=== PATIENT | male | born 1970 | race Caucasian/White ===

== ENCOUNTER 2017-06-17 14:31 | Emergency (ER) | payer SELFPAY ==
[2017-06-17 14:36] VITALS: BP 145/82; PULSE 84; RESP 20; TEMP 97.5; O2SAT 100
--- NOTE | 2017-06-17 14:55 | C.PDOC ---
History Of Present Illness Patient presents to ED for B/P check. Patient reports episode of palpitations today. (-) CP, (-) Sob Time Seen by Provider: 06/17/17 14:43 Chief Complaint (Nursing): Palpitations History Per: Patient Onset/Duration Of Symptoms: Hrs (1) Current Symptoms Are (Timing): Gone Severity: None Recent travel outside of the [place]: No Additional History Per: Patient Past Medical History Reviewed: Historical Data, Nursing Documentation, Vital Signs Vital Signs: Last Vital Signs Temp 97.5 F L 06/17/17 14:35 Pulse 84 06/17/17 14:35 Resp 20 06/17/17 14:35 BP 145/82 06/17/17 14:35 Pulse Ox 100 06/17/17 15:02 - Medical History PMH: No Chronic Diseases Surgical History: No Surg Hx Family History: States: No Known Family Hx Review Of Systems Cardiovascular: Positive for: Palpitations Physical Exam - Physical Exam Appears: Well, Non-toxic Cardiovascular: Rhythm Regular Respiratory: Normal Breath Sounds Neurological/Psych: Oriented x3 Gait: Steady ED Course And Treatment O2 Sat by Pulse Oximetry: 100 Progress Note: Patient visiting someone in the hospital and had episode of palpitations. wants B/P checked. declines further evaluation Reassessment Condition: Unchanged Medical Decision Making Medical Decision Making: Patient requesting discharge to home reports he only presented to ED for B/P check refusing and further evaluation Disposition Counseled Patient/Family Regarding: Need For Followup - Disposition Referrals: [facility] [Outside] [facility] [employer] [facility] [Outside] Disposition: HOME/ ROUTINE Disposition Time: 15:10 Condition: IMPROVED Additional Instructions: Follow up at clinic or PMD for further evaluation Instructions: Palpitations (ED) Forms: [employer] ([place]ian) - POA Present On Arrival: None - Clinical Impression Clinical Impression: Palpitations
--- NOTE | 2017-06-18 15:34 | CARD ---
APPROVED REPORT EKG Measurement Heart [id number] <Conclusion> Normal sinus rhythm Normal ECG
== END 2017-06-17 14:50 | disposition home or self-care (01) ==
LOC: C.ER 14:31
DX: R00.2 Palpitations (principal)